=== PATIENT | male | born 1945 | race Caucasian/White ===

== ENCOUNTER 2023-11-04 08:30 | Outpatient (CLI) | payer MEDICARE, OTHER ==
--- NOTE | 2023-11-04 10:13 | XRAY Report ---
PROCEDURE: Ankle 3+V LT INDICATIONS: LEFT ANKLE ARTHRITIS TECHNIQUE: 3 views of the ankle were acquired. COMPARISON: None. FINDINGS: Bones: No fractures or dislocations. Chronic appearing osseous fragment at the tip of the distal fib geronimo, may represent sequela of prior fracture. Ankle mortise is normally aligned. No suspicious bony lesions. Soft tissues: No tibiotalar joint effusion. Achilles tendon appears normal. Soft tissue swelling ab out the ankle. IMPRESSION: No acute bony abnormality. No significant degenerative changes of the ankle joint. Reviewed by: aDrian Melendez MD on 11/04/2023 10:12 AM [facility] Approved by: Darian Melendez MD on 11/04/2023 10:12 AM [facility] Station ID: [id number]
[2023-11-04 12:32] LABS: CALCIUM 9.8 mg/dL (8.5-10.3); CREATININE 0.8 mg/dL (0.6-1.3); POTASSIUM 4.3 mmol/L (3.5-4.5); URIC ACID 5.6 mg/dL (4.4-7.6)
== END 2023-11-04 08:45 | disposition home or self-care (01) ==
LOC: DI.N 08:30
PROVIDERS: ATTEND Family Medicine
DX: M19.072 Primary osteoarthritis, left ankle and foot (principal)
CPT/HCPCS: 36415; 80048; 84550